=== PATIENT | male | born 1990 | race Caucasian/White ===

== ENCOUNTER 2016-10-20 16:57 | Inpatient (IN) | payer MEDICAID ==
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
[2016-10-20 18:53] LABS: % BASOPHILS 0.7 % (0.0-2.0); % EOSINOPHILS 3.7 % (0.0-5.0); % LYMPHOCYTES 28.3 % (20.0-50.0); % MONOCYTES 6.5 % (2.0-10.0); % NEUTROPHILS 60.8 % (40.0-80.0); HEMATOCRIT 45.4 % (39.0-49.0); HEMOGLOBIN 15.3 gm/dL (13.2-17.3); MEAN CELL VOLUME 83.9 fl (80-99); MEAN CORPUSCULAR HEMOGLOBIN 28.4 pg (26.0-30.0); MEAN CORPUSCULAR HGB CONC 33.8 pg (28.0-36.0); MEAN PLATELET VOLUME 9.1 fl; NEUTROPHILE ABSOLUTE 4.3 Th/cmm (1.8-8.0); PLATELET COUNT 102 Th/cmm (150-400); RED BLOOD COUNT 5.41 Mil/cmm (4.30-5.70); RED CELL DISTRIBUTION WIDTH 13.6 % (11.5-20.0); WHITE BLOOD COUNT 7.1 Th/cmm (4.8-10.8)
[2016-10-20] MEDS ORDERED: Sodium Chloride 0.9% 1,000 ML IV ONE (19:03)
[2016-10-20 19:04] LABS: ANION GAP 5.6 (7.0-16.0); BUN - UREA NITROGEN 13 mg/dL (7-25); BUN/CREATININE RATIO 16.3; CALCIUM SERUM 9.2 mg/dL (8.6-10.3); CARBON DIOXIDE 26.3 mEq/L (21.0-31.0); CHLORIDE 105 mEq/L (98-107); CREATININE - SERUM 0.8 mg/dL (0.7-1.3); GLUCOSE 86 mg/dL (70-105); POTASSIUM SERUM 3.9 mEq/L (3.5-5.1); SODIUM SERUM 133 mEq/L (136-145)
[2016-10-20 19:08] LABS: URINE COLOR YELLOW
[2016-10-20 19:09] LABS: URINE BILIRUBIN NEGATIVE (NEGATIVE); URINE BLOOD MODERATE (NEGATIVE); URINE GLUCOSE (UA) NEGATIVE (NEGATIVE); URINE KETONE NEGATIVE (NEGATIVE); URINE PH 6.5; URINE PROTEIN 30 mg/dL (NEGATIVE); URINE UROBILINOGEN 0.2 E.U./dL (0.2 - 1.0)
[2016-10-20 19:10] LABS: URINE BACTERIA MODERATE /hpf (NONE SEEN); URINE EPITHELIAL CELLS FEW /lpf (FEW); URINE WBC 50-100 /hpf (0-5)
[2016-10-20] MEDS ORDERED: cefTRIAXone 1 GM in Sodium Chloride 0.9% 50 ML IV ONE (19:24)
[2016-10-20] MEDS ORDERED: HYDROmorphone 1 mg/mL 1mL Syr IVP STA (20:32)
[2016-10-20] MEDS ORDERED: HYDROmorphone 1 mg/mL 1mL Syr ONE (20:48)
[2016-10-20] MEDS ORDERED: Morphine Sulfate 2 mg/mL 1mL Syr IVP PRN (21:23)
--- NOTE | 2016-10-20 22:05 | Admit Criteria Form ---
Admit Criteria Forms - Admit Criteria Diagnosis: PYELONEPHRITIS, ACUTE Clinical Indications for Admission to Inpatient Care (Place 'X' for any and all applicable criteria): Admission is indicated for ANY ONE of the following 1,2,3,4,5 [ ]I. Outpatient treatment has failed or is not feasible (eg, multidrug- resistant organism).5 [ ]II. beyond 24 weeks' gestation6 [ ]III. Hemodynamic instability [ ]IV. Immunocompromised state (eg, AIDS, diabetes, sickle cell disease) [X]V. Known renal or urologic abnormalities (eg, indwelling catheter, structural abnormalities, renal calculi, urinary stent, previous urologic surgery) [ ]. Condition that requires drainage procedure, including ANY ONE of the following: [ ]a) Urinary obstruction [ ]b) Pyelitis [ ]c) Pyonephrosis [ ]d) Renal or perinephric abscess [ ]e) Emphysematous pyelonephritis 7 [ ]VII. Inpatient admission required rather than observation care (Also use Pyelonephritis, Acute: Observation Care Criteria as appropriate) because of ANY ONE of the following: [ ]a) High fever or infection requiring inpatient admission as indicated by ANY ONE of [id number] [ ]A. Documented bacteremia [ ]B. Temp>104.9 [id number] (oral) [ ]C. Temp>103.10F (oral) or <96.80F (rectal) that does not respond to all emergency treatment [ ]b) Acute renal failure [ ]c) Other significant finding or clinical condition judged not to be within the scope of observation care [ ]d) IV fluid to replace significant ongoing (eg, for over 24hrs) losses (> 3 L/m2 per day) [ ]e) Other condition,treatment or monitoring requiring inpatient admission The original [facility] content created by [employer] has been revised. The portions of the content which have been revised are identified through the use of italic text or in bold, and [facility] has neither reviewed nor approved the modified material. All other unmodified content is copyright [facility]. Please see references footnoted in the original [facility] [employer] edition 2016 Admit Criteria Met?: Yes
[2016-10-21] MEDS: D5-0.45NS 1,000 ML IV SCH (00:12)
[2016-10-21 00:44] VITALS: BP 117/53
[2016-10-21] MEDS ORDERED: Amikacin 250 mg/mL 2mL Vial IV ONE (02:03)
[2016-10-21] MEDS ORDERED: Cefepime 1 GM in Sodium Chloride 0.9% 50 ML IV SCH (05:00)
[2016-10-21 06:08] LABS: % BASOPHILS 0.9 % (0.0-2.0); % EOSINOPHILS 6.3 % (0.0-5.0); % LYMPHOCYTES 32.7 % (20.0-50.0); % NEUTROPHILS 51.1 % (40.0-80.0); HEMATOCRIT 44.5 % (39.0-49.0); HEMOGLOBIN 15.3 gm/dL (13.2-17.3); MEAN CELL VOLUME 84.1 fl (80-99); MEAN CORPUSCULAR HEMOGLOBIN 28.9 pg (26.0-30.0); MEAN CORPUSCULAR HGB CONC 34.4 pg (28.0-36.0); MEAN PLATELET VOLUME 9.3 fl; NEUTROPHILE ABSOLUTE 2.8 Th/cmm (1.8-8.0); PLATELET COUNT 90 Th/cmm (150-400); RED CELL DISTRIBUTION WIDTH 13.4 % (11.5-20.0)
[2016-10-21 06:27] LABS: WHITE BLOOD COUNT 5.6 Th/cmm (4.8-10.8)
[2016-10-21 06:30] LABS: ALB/GLOB RATIO 1.5 (1.0-1.8); ALKALINE PHOSPHATASE 46 U/L (34-104); ANION GAP 6.5 (7.0-16.0); BILIRUBIN,TOTAL 0.6 mg/dL (0.3-1.0); BUN - UREA NITROGEN 12 mg/dL (7-25); CALCIUM SERUM 8.7 mg/dL (8.6-10.3); CARBON DIOXIDE 24.5 mEq/L (21.0-31.0); CHLORIDE 110 mEq/L (98-107); CREATININE - SERUM 0.8 mg/dL (0.7-1.3); GLUCOSE 97 mg/dL (70-105); SGOT 16 U/L (13-39); SGPT/ALT 17 U/L (7-52); SODIUM SERUM 137 mEq/L (136-145)
[2016-10-21 08:25] LABS: INR 1.09 (0.5-1.4); PROTHROMBIN TIME (TEST) 11.3 SECONDS (9.5-11.5)
[2016-10-21 08:32] LABS: PLATELET COUNT-DIC PANEL 90 Th/cmm (150-750)
[2016-10-21] MEDS: AMIKACIN IV SCH (10:17)
[2016-10-21] MEDS: DEXTROSE 5% IV SCH (10:17)
--- NOTE | 2016-10-21 10:17 | Diagnostic Imaging Report ---
Renal ultrasound HISTORY: Pyelonephritis. COMPARISON: None Technique: Sonography of the kidneys and urinary bladder was performed in multiple planes. FINDINGS: The right kidney measures 9.0 x 4.5 cm. There is fullness of the renal collecting system without evidence of harlan hydronephrosis. The left kidney measures 11.1 x 4.2 cm demonstrating mild left hydronephrosis. No evidence of focal lesions. Distended urinary bladder is noted measuring 351 mL's. The patient was unable to void during exam. Areas of irregular urinary bladder wall thickening are noted. IMPRESSION: Mild left hydronephrosis. Nonspecific fullness of the right renal collecting system without evidence of harlan hydronephrosis. Distended urinary bladder. Note, patient was unable to void. There are also areas of urinary bladder wall thickening with irregularities. Findings may be due to infectious, inflammatory, or neoplastic process. Clinical correlation is recommended.
[2016-10-21] MEDS: HYDROmorphone 2 mg/mL 1mL Vial IVP PRN ×3 (10:27→20:53)
[2016-10-21] MEDS: Cefepime 1 GM in Sodium Chloride 0.9% 50 ML IV SCH (17:30)
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
[2016-10-22] MEDS: HYDROmorphone 2 mg/mL 1mL Vial IVP PRN ×4 (01:03→16:27)
[2016-10-22] MEDS: Cefepime 1 GM in Sodium Chloride 0.9% 50 ML IV SCH ×2 (05:17→17:06)
[2016-10-22] MEDS: D5-0.45NS 1,000 ML IV SCH (05:22)
[2016-10-22 05:43] LABS: % BASOPHILS 0.2 % (0.0-2.0); % EOSINOPHILS 4.1 % (0.0-5.0); % LYMPHOCYTES 31.9 % (20.0-50.0); % MONOCYTES 7.6 % (2.0-10.0); % NEUTROPHILS 56.2 % (40.0-80.0); HEMATOCRIT 48.4 % (39.0-49.0); HEMOGLOBIN 16.3 gm/dL (13.2-17.3); MEAN CELL VOLUME 84.5 fl (80-99); MEAN CORPUSCULAR HEMOGLOBIN 28.5 pg (26.0-30.0); MEAN CORPUSCULAR HGB CONC 33.8 pg (28.0-36.0); MEAN PLATELET VOLUME 9.3 fl; NEUTROPHILE ABSOLUTE 2.9 Th/cmm (1.8-8.0); PLATELET COUNT 91 Th/cmm (150-400); RED BLOOD COUNT 5.73 Mil/cmm (4.30-5.70); RED CELL DISTRIBUTION WIDTH 13.2 % (11.5-20.0); WHITE BLOOD COUNT 5.2 Th/cmm (4.8-10.8)
[2016-10-22 06:03] LABS: ALB/GLOB RATIO 1.6 (1.0-1.8); ALKALINE PHOSPHATASE 49 U/L (34-104); ANION GAP 7.1 (7.0-16.0); BILIRUBIN,TOTAL 0.8 mg/dL (0.3-1.0); BUN - UREA NITROGEN 9 mg/dL (7-25); BUN/CREATININE RATIO 11.3; CALCIUM SERUM 9.2 mg/dL (8.6-10.3); CHLORIDE 108 mEq/L (98-107); CREATININE - SERUM 0.8 mg/dL (0.7-1.3); GLUCOSE 91 mg/dL (70-105); POTASSIUM SERUM 4.1 mEq/L (3.5-5.1); SGOT 19 U/L (13-39); SGPT/ALT 21 U/L (7-52); SODIUM SERUM 138 mEq/L (136-145)
[2016-10-22] MEDS: DEXTROSE 5% IV SCH (10:04)
[2016-10-22] MEDS: AMIKACIN IV SCH (10:04)
--- NOTE | 2016-10-22 10:49 | Infectious Disease Prog Note ---
Infectious Disease Subjective - Review of Systems Subjective: 126131 Infectious Disease Objective - Results Result Diagrams: 10/22/16 05:27 10/22/16 05:27 Recent Labs: Laboratory Last Values WBC 5.2 Th/cmm (4.8-10.8) 10/22/16 05:27 RBC 5.73 Mil/cmm (4.30-5.70) H 10/22/16 05:27 Hgb 16.3 gm/dL (13.2-17.3) 10/22/16 05:27 Hct 48.4 % (39.0-49.0) 10/22/16 05:27 MCV 84.5 fl (80-99) 10/22/16 05:27 MCH 28.5 pg (26.0-30.0) 10/22/16 05:27 MCHC Differential 33.8 pg (28.0-36.0) 10/22/16 05:27 RDW 13.2 % (11.5-20.0) 10/22/16 05:27 Plt Count 91 Th/cmm (150-400) L 10/22/16 05:27 MPV 9.3 fl 10/22/16 05:27 Neutrophils % 56.2 % (40.0-80.0) 10/22/16 05:27 Lymphocytes % 31.9 % (20.0-50.0) 10/22/16 05:27 Monocytes % 7.6 % (2.0-10.0) 10/22/16 05:27 Eosinophils % 4.1 % (0.0-5.0) 10/22/16 05:27 Basophils % 0.2 % (0.0-2.0) 10/22/16 05:27 Plt Count 90 Th/cmm (150-750) L 10/21/16 05:50 PT 11.3 SECONDS (9.5-11.5) 10/21/16 05:50 INR 1.09 (0.5-1.4) 10/21/16 05:50 PTT (Actin FS) 28.1 SECONDS (26.0-38.0) 10/21/16 05:50 Fibrinogen 157.0 mg/dL (200.0-400.0) L 10/21/16 05:50 D-Dimer < 100 ng/mL (100-400) L 10/21/16 05:50 Sodium 138 mEq/L (136-145) 10/22/16 05:27 Potassium 4.1 mEq/L (3.5-5.1) 10/22/16 05:27 Chloride 108 mEq/L (98-107) H 10/22/16 05:27 Carbon Dioxide 27.0 mEq/L (21.0-31.0) 10/22/16 05:27 Anion Gap 7.1 (7.0-16.0) 10/22/16 05:27 BUN 9 mg/dL (7-25) 10/22/16 05:27 Creatinine 0.8 mg/dL (0.7-1.3) 10/22/16 05:27 Est GFR ( Amer) > 60.0 ml/min (>90) 10/22/16 05:27 Est GFR (Non-Af Amer) > 60.0 ml/min 10/22/16 05:27 BUN/Creatinine Ratio 11.3 10/22/16 05:27 Glucose 91 mg/dL (70-105) 10/22/16 05:27 Calcium 9.2 mg/dL (8.6-10.3) 10/22/16 05:27 Total Bilirubin 0.8 mg/dL (0.3-1.0) 10/22/16 05:27 AST 19 U/L (13-39) 10/22/16 05:27 ALT 21 U/L (7-52) 10/22/16 05:27 Alkaline Phosphatase 49 U/L (34-104) 10/22/16 05:27 Total Protein 7.0 gm/dL (6.0-8.3) 10/22/16 05:27 Albumin 4.3 gm/dL (4.2-5.5) 10/22/16 05:27 Globulin 2.7 gm/dL 10/22/16 05:27 Albumin/Globulin Ratio 1.6 (1.0-1.8) 10/22/16 05:27 Urine Source CONCEPCION PORT 10/20/16 17:29 Urine Color YELLOW 10/20/16 17:29 Urine Clarity HAZY (CLEAR) 10/20/16 17:29 Urine pH 6.5 10/20/16 17:29 Ur Specific [place] 1.015 (1.005-1.030) 10/20/16 17:29 Urine Protein 30 mg/dL (NEGATIVE) H 10/20/16 17:29 Urine Glucose (UA) NEGATIVE mg/dL (NEGATIVE) 10/20/16 17:29 Urine Ketones NEGATIVE mg/dL (NEGATIVE) 10/20/16 17:29 Urine Blood MODERATE (NEGATIVE) H 10/20/16 17:29 Urine Nitrate NEGATIVE (NEGATIVE) 10/20/16 17:29 Urine Bilirubin NEGATIVE (NEGATIVE) 10/20/16 17:29 Urine Urobilinogen 0.2 E.U./dL (0.2 - 1.0) 10/20/16 17:29 Ur Leukocyte Esterase SMALL (NEGATIVE) H 10/20/16 17:29 Urine RBC 5-10 /hpf (0-5) H 10/20/16 17:29 Urine WBC 50-100 /hpf (0-5) H 10/20/16 17:29 Ur Epithelial Cells FEW /lpf (FEW) 10/20/16 17:29 Urine Bacteria MODERATE /hpf (NONE SEEN) 10/20/16 17:29 - Physical Exam Vitals and I&O: Vital Signs Temp 98.2 F 10/22/16 08:00 Pulse 56 10/22/16 08:00 Resp 18 10/22/16 08:00 BP 115/72 10/22/16 08:00 Pulse Ox 99 10/22/16 08:00 Intake & Output 10/21/16 10/22/16 10/22/16 18:59 06:59 18:59 Intake Total 1304.8 860 Balance 1304.8 860 Intake: Intake, IV Amount 1304.8 Amikacin 1,200 mg In 254.8 Dextrose 5% 250 ml @ 250 mls/hr IV Q24H DANNY Rx#: [id number] Cefepime 1 gm In Sodium 50 Chloride 0.9% 50 ml @ 100 mls/hr IV Q12H DANNY Rx#: [id number] D5-0.45NS 1,000 ml @ 100 1000 mls/hr IV .Q10H DANNY Rx#: [id number] Oral 860 Other: # Voids 4 Active Medications: Current Medications Acetaminophen (Tylenol) 650 mg PO Q6H PRN PRN Reason: Mild Pain/Headache/T above 101 Stop: 12/19/16 21:22 Diphenhydramine HCl (Benadryl 50 Mg/Ml) 25 mg IVP Q6HR PRN PRN Reason: Itching Stop: 12/20/16 17:12 Last Admin: 10/22/16 08:16 Dose: 25 mg Hydromorphone HCl (Dilaudid) 2 mg IVP Q4HR PRN PRN Reason: pain Stop: 12/20/16 10:11 Last Admin: 10/22/16 08:10 Dose: 2 mg Dextrose/Sodium Chloride (D5-0.45ns) 1,000 mls @ 100 mls/hr IV .Q10H [facility] Stop: 12/19/16 21:29 Last Admin: 10/22/16 05:22 Dose: 100 mls/hr Amikacin Sulfate 1,200 mg/ (Dextrose) 254.8 mls @ 250 mls/hr IV Q24H [facility] Stop: 12/20/16 09:59 Last Admin: 10/22/16 10:04 Dose: 250 mls/hr Cefepime HCl 1 gm/ Sodium (Chloride) 50 mls @ 100 mls/hr IV Q12H [facility] Stop: 12/20/16 04:59 Last Admin: 10/22/16 05:17 Dose: 100 mls/hr Miscellaneous (Amikacin Iv Per Pharmacy) 1 ea [facility] PRN PRN PRN Reason: PROTOCOL Stop: 12/19/16 21:26 Ondansetron HCl (Zofran) 4 mg IVP Q6H PRN PRN Reason: Nausea / Vomiting Stop: 12/19/16 21:22 Sodium Chloride (Saline Flush) 10 ml IV QSHIFT [facility] Stop: 12/20/16 07:59 Last Admin: 10/22/16 08:10 Dose: 10 ml Temazepam (Restoril) 15 mg PO HS PRN; Protocol PRN Reason: Insomnia Stop: 12/19/16 21:22
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
== END 2016-10-22 19:45 | disposition home or self-care (01) | DRG 463 ==
LOC: ER 16:57 → MSI 21:25
PROVIDERS: ADMIT Internal Medicine; ATTEND Internal Medicine
DX: N30.90 Cystitis, unspecified without hematuria (principal); N12 Tubulo-interstitial nephritis, not specified as acute or chronic; G89.29 Other chronic pain
CPT/HCPCS: 36415-UA; 76770-TC; 76857-TC; 80048-TC; 80053-TC; 80150-TC; 81001-TC; 85025-TC; 85049-TC; 85379-TC; 85384-TC; 85610-TC; 85730-TC; 87086-90; 96375; J0278; J0692; J0696; J1170; J1200; J2270; J7030

== ENCOUNTER 2016-11-25 12:01 | Emergency (ER) | payer MEDICAID ==
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
--- NOTE | 2016-11-25 13:53 | Diagnostic Imaging Report ---
CT right knee without IV contrast History: Trauma Comparison: None Technique: Axial images were obtained from the distal right femur the proximal right tibia without IV contrast. Reconstructions were made. Total DLP 193, CTD I 7.2 Findings: Mild degenerative changes are noted. No evidence of an acute fracture or dislocation. Old fibular styloid fractures are noted surrounding cortication. No evidence of a joint effusion. There may be osteopenia. There is mild prepatellar soft tissue swelling. IMPRESSION: No evidence of acute fracture. Mild prepatellar soft tissue swelling is noted. Old fibular styloid fracture. Mild degenerative changes. Osteopenia suspected. There is continued concern for underlying ligamentous or tendon injury MRI follow-up may also be obtained.
== END 2016-11-25 14:11 | disposition home or self-care (01) ==
LOC: ER 12:01
DX: S80.01XA Contusion of right knee, initial encounter (principal); Z88.5 Allergy status to narcotic agent; X58.XXXA Exposure to other specified factors, initial encounter; Y93.89 Activity, other specified; Y92.810 Car as the place of occurrence of the external cause; Y99.8 Other external cause status
CPT/HCPCS: 73700-TC-RT; Z7502

== ENCOUNTER 2017-02-20 12:59 | Emergency (ER) | payer MEDICAID ==
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
[2017-02-20 14:12] LABS: % BASOPHILS 0.5 % (0.0-2.0); % EOSINOPHILS 1.8 % (0.0-5.0); % LYMPHOCYTES 24.9 % (20.0-50.0); % MONOCYTES 5.7 % (2.0-10.0); % NEUTROPHILS 67.1 % (40.0-80.0); HEMATOCRIT 47.7 % (39.0-49.0); HEMOGLOBIN 16.4 gm/dL (13.2-17.3); MEAN CELL VOLUME 84.9 fl (80-99); MEAN CORPUSCULAR HEMOGLOBIN 29.2 pg (26.0-30.0); MEAN CORPUSCULAR HGB CONC 34.4 pg (28.0-36.0); NEUTROPHILE ABSOLUTE 5.6 Th/cmm (1.8-8.0); RED BLOOD COUNT 5.62 Mil/cmm (4.30-5.70)
[2017-02-20 14:16] LABS: PLATELET COUNT 148 Th/cmm (150-400); WHITE BLOOD COUNT 8.4 Th/cmm (4.8-10.8)
[2017-02-20 14:24] LABS: INR 1.08 (0.5-1.4); PROTHROMBIN TIME (TEST) 11.2 SECONDS (9.5-11.5)
[2017-02-20 14:27] LABS: URINE BILIRUBIN NEGATIVE (NEGATIVE); URINE BLOOD SMALL (NEGATIVE); URINE GLUCOSE (UA) NEGATIVE (NEGATIVE); URINE KETONE NEGATIVE (NEGATIVE); URINE PROTEIN 30 mg/dL (NEGATIVE); URINE UROBILINOGEN 0.2 E.U./dL (0.2 - 1.0)
[2017-02-20 14:29] LABS: ALB/GLOB RATIO 1.8 (1.0-1.8); ALKALINE PHOSPHATASE 52 U/L (34-104); BILIRUBIN,TOTAL 0.6 mg/dL (0.3-1.0); BUN - UREA NITROGEN 8 mg/dL (7-25); BUN/CREATININE RATIO 8.9; CALCIUM SERUM 9.6 mg/dL (8.6-10.3); CARBON DIOXIDE 24.9 mEq/L (21.0-31.0); CHLORIDE 106 mEq/L (98-107); CREATININE - SERUM 0.9 mg/dL (0.7-1.3); GLUCOSE 98 mg/dL (70-105); POTASSIUM SERUM 3.9 mEq/L (3.5-5.1); SGOT 15 U/L (13-39); SGPT/ALT 17 U/L (7-52); SODIUM SERUM 134 mEq/L (136-145)
[2017-02-20 14:48] LABS: URINE BACTERIA FEW /hpf (NONE SEEN); URINE COLOR YELLOW; URINE EPITHELIAL CELLS FEW /lpf (FEW); URINE RBC 0-2 /hpf (0-5)
== END 2017-02-20 15:25 | disposition home or self-care (01) ==
LOC: ER 12:59
DX: N39.0 Urinary tract infection, site not specified (principal); Z88.6 Allergy status to analgesic agent
CPT/HCPCS: 99284; 96372; 84484; 36415; 84443; 86592; 85025; 85610; 85730; 87086; 81001; 80053; 87040 ×2; J0696; J1885; Z7502

== ENCOUNTER 2017-12-05 14:44 | Emergency (ER) | payer MEDICAID ==
--- NOTE | 2017-12-05 15:12 | ED Physician Chart ---
ED Chief Complaint/HPI - Patient Information Date Seen:: 12/05/17 Time Seen:: 14:45 Chief Complaint:: Dysuria History of Present Illness:: onset x 3 days of dysuria; pt is S/P Penile Surgery; pt denies trauma, H/As, S/T , neck pain, C/P, SOB, Abd. Pain, A/N/V/D/C, fever, chills, or bleeding; pt is eating and is urinating well; pt last urinated one hour [employer]; pt's last tetanus shot: < 5 years; UTD Allergies:: Allergies Allergy/AdvReac Type Severity Reaction Status Date / Time morphine Allergy Verified 11/25/16 12:10 Vitals:: Vital Signs - 8 hr 12/05/17 14:51 BP 120/71 Historian:: Patient Review:: Nurse's Note Reviewed ED Review of Systems - Review of Systems General/Constitutional: No fever, No chills, No weight loss, No weakness, No diaphoresis, No edema, No loss of appetite Skin: No skin lesions, No rash, No bruising Head: No headache, No light-headedness Eyes: No loss of vision, No pain, No diplopia ENT: No earache, No nasal drainage, No sore throat, No tinnitus Neck: No neck pain, No swelling, No thyromegaly, No stiffness, No mass noted Cardio Vascular: No chest pain, No palpitations, No PND, No orthopnea, No edema Pulmonary: No SOB, No cough, No sputum, No wheezing GI: No nausea, No vomiting, No diarrhea, No pain, No melena, No hematochezia, No constipation, No hematemesis G/U: Dysuria, No frequency, No hematuria, No nacturia Musculoskeletal: No bone or joint pain, No back pain, No muscle pain Endocrine: No polyuria, No polydipsia Psychiatric: No prior psych history, No depression, No anxiety, No suicidal ideation, No homicidal ideation, No auditory hallucination, No visual hallucination Hematopoietic: No bruising, No lymphadenopathy Allergic/Immuno: No urticaria, No angioedema Neurological: No syncope, No focal symptoms, No weakness, No paresthesia, No headache, No seizure, No dizziness, No confusion, No vertigo ED Past Medical History - Past Medical History Obtainable: Yes Past Medical History: No significant medical hx Family History: HTN Social History: Non Smoker, No Alcohol, No Drug Use, Single Surgical History: other (Penile Surgery) Psychiatricy History: None Medication: Reviewed Family Medical History - Family Member Mother History Unknown: Yes Ethnicity: Non- Living Status: Still Living Hx Family Cancer: No Hx Family Coronary Artery Disease: No Hx Family Congestive Heart Failure: No Hx Family Hypertension: No Hx Family Stroke: No Hx Family Diabetes: No Hx Family Seizures: No Hx Family Dementia: No Hx Family AIDS: No Hx Family HIV: No Hx Family COPD: No Hx Family Hepatitis: No Hx Family Psychiatric Problems: No Hx Family Tuberculosis: No Grandmother Hx Family Diabetes: Yes ED Physical Exam - Physical Examination General/Constitutional: Awake, Well-developed, well-nourished, Alert, No distress, GCS 15, Non-toxic appearing, Ambulatory Head: Atraumatic Eyes: Lids, conjuctiva normal, PERRL, EOMI Skin: Nl inspection, No rash, No skin lesions, No ecchymosis, Well hydrated, No lymphadenopathy Other Skin comments:: Surgical Wounds at the Abdomen and Regions are healing well; no s/s of infection; good motor and sensory functions; good NV functions ENMT: External ears, nose nl, TM canals nl, Nasal exam nl, Lips, teeth, gums nl , Oropharynx nl, Tonsils nl Neck: Nontender, Full ROM w/o pain, No JVD, No nuchal rigidity, No bruit, No mass, No stridor Other Neck comments:: supple; no meningeal signs; no cervical tenderness; no bruits Respiratory: Nl effort/Exclusion, Clear to Auscultation, No Wheeze/Rhonchi/Rales Cardio Vascular: RRR, No murmur, gallop, rubs, NL S1 S2, Carotid/Femoral/Distal pulses equal bilaterally GI: No tenderness/rebounding/guarding, No organomegaly, No hernia, Normal BS's, Nondistended, No mass/bruits, No McBurney tenderness, Rectum exam nl Other GI comments:: no pulsatile masses; good BS; Stool is negative for OB : No CVA tenderness, NL external genitalia, No discharge Extremities: No tenderness or effusion, Full ROM, normal strength in all extremities, No edema, Normal digits & nails Neuro/Psych: Alert/oriented, DTR's symmetric, Normal sensory exam, Normal motor strength, Judgement/insight normal, Mood normal, Normal gait, No focal deficits Misc: Normal back, No paraspinal tenderness ED Labs/Radiology/EKG Results - Lab Results Comments:: U/A: + Pyuria; + Hematuria ED Septic Shock - . Is Septic Shock (SBP<90, OR Lactate>4 mmol\L) present?: No - <6hrs of presentation: Vital Signs: Vital Signs - 8 hr 12/05/17 14:51 BP 120/71 ED Reassessment (Disposition) - Reassessment Reassessment:: pt tolerated po fluids well in ER; pt is asymptomatic upon discharge Reassessment Condition:: Improved - Diagnosis Diagnosis:: Dx: UTI; Hematuria; Dysuria; Surgical Wounds; Cystitis; Nephrolithiasis; Urinary Tract Infection - Aftercare/Follow up Instructions Aftercare/Follow-Up Instructions:: Counseled pt regarding lab results/diagnosis & need follow up, Refer to Discharge Instructions, Counseled pt & family regarding lab results/diagnosis & need follow up Medication Prescribed:: Rx: Keflex 500mg po qid x 10 days; Neosporin Ointment bid and dressings x 14 days; Tylenol #3: one tablet po tid prn pain (#10); Strain all urine with Urine Strainer; Encourage fluids, especially citric acid juices; keep wounds clean and dry - Patient Disposition Discharge/Transfer:: Home Condition at Disposition:: Stable, Improved (RTER prn if existing s/s reoccur and/or get worse and/or any other new s/s occur; ACIs given for all above Dx; Refer to Urologist/Abdominal Surgeon/Insurance Office Manager DANIEL; F/U with PMD in one day or prn; RTER prn if concerned)
[2017-12-05 15:20] LABS: URINE MICROSCOPIC INDICATED? YES; URINE SOURCE MIDSTREAM
[2017-12-05 15:37] LABS: URINE COLOR YELLOW
[2017-12-05 15:38] LABS: URINE CLARITY CLOUDY (CLEAR)
[2017-12-05 15:39] LABS: URINE BILIRUBIN NEGATIVE (NEGATIVE); URINE BLOOD MODERATE (NEGATIVE); URINE GLUCOSE (UA) NEGATIVE (NEGATIVE); URINE KETONE NEGATIVE (NEGATIVE); URINE LEUKOCYTE ESTERASE LARGE (NEGATIVE); URINE NITRATE POSITIVE (NEGATIVE); URINE PROTEIN 100 mg/dL (NEGATIVE); URINE UROBILINOGEN 0.2 E.U./dL (0.2 - 1.0)
[2017-12-05 15:44] LABS: URINE BACTERIA MANY /hpf (NONE SEEN); URINE EPITHELIAL CELLS OCCASIONAL /lpf (FEW); URINE WBC 25-50 /hpf (0-5)
== END 2017-12-05 16:02 | disposition home or self-care (01) ==
LOC: ER 14:44
DX: N39.0 Urinary tract infection, site not specified (principal); N20.0 Calculus of kidney; N30.91 Cystitis, unspecified with hematuria
CPT/HCPCS: 81001-TC; 87086-90; Z7502

== ENCOUNTER 2018-05-31 15:06 | Inpatient (IN) | payer MEDICAID ==
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
[2018-05-31 16:13] LABS: URINE SOURCE CATH
[2018-05-31 16:16] LABS: HEMATOCRIT 45.4 % (41.0-60); HEMOGLOBIN 15.3 gm/dL (12-16); MEAN CELL VOLUME 89.8 fl (80-99); MEAN CORPUSCULAR HEMOGLOBIN 30.2 pg (26.0-30.0); MEAN CORPUSCULAR HGB CONC 33.6 pg (28.0-36.0); MEAN PLATELET VOLUME 8.2 fl; PLATELET COUNT 185 Th/cmm (150-400); RED BLOOD COUNT 5.05 Mil/cmm (4.30-5.70); RED CELL DISTRIBUTION WIDTH 13.6 % (11.5-20.0); WHITE BLOOD COUNT 14.5 Th/cmm (4.8-10.8)
[2018-05-31 16:18] LABS: URINE BILIRUBIN NEGATIVE (NEGATIVE); URINE BLOOD SMALL (NEGATIVE); URINE GLUCOSE (UA) NEGATIVE (NEGATIVE); URINE KETONE NEGATIVE (NEGATIVE); URINE LEUKOCYTE ESTERASE MODERATE (NEGATIVE); URINE MICROSCOPIC INDICATED? YES; URINE NITRATE NEGATIVE (NEGATIVE); URINE PROTEIN TRACE mg/dL (NEGATIVE)
[2018-05-31 16:34] LABS: URINE CLARITY HAZY (CLEAR); URINE COLOR YELLOW; URINE RBC NONE SEEN /hpf (0-5)
[2018-05-31 16:35] LABS: URINE BACTERIA MODERATE /hpf (NONE SEEN); URINE EPITHELIAL CELLS NONE SEEN /lpf (FEW)
[2018-05-31] MEDS ORDERED: Sodium Chloride 0.9% 1,000 ML IV ONE (16:38)
[2018-05-31] MEDS ORDERED: cefTRIAXone 1 GM in Sodium Chloride 0.9% 50 ML IV ONE (16:39)
[2018-05-31 16:40] LABS: ANION GAP 11.5 (7.0-16.0); BUN - UREA NITROGEN 17 mg/dL (7-25); CALCIUM SERUM 9.2 mg/dL (8.6-10.3); CARBON DIOXIDE 22.5 mEq/L (21.0-31.0); CHLORIDE 104 mEq/L (98-107); GFR AFRICAN-AMERICAN > 60.0 ml/min (>90); GFR NON AFRICAN-AMERICAN > 60.0 ml/min; GLUCOSE 98 mg/dL (70-105); SODIUM SERUM 134 mEq/L (136-145)
[2018-05-31 16:58] LABS: BAND NEUTROPHILE 0 % (0-10); LYMPHOCYTE 6 % (20-50); NEUTROPHILS 88 % (40-80)
[2018-05-31 16:59] LABS: EOSINOPHIL 1 % (0-5); MONOCYTE 5 % (2-10)
[2018-05-31] MEDS ORDERED: HYDROmorphone 1 mg/mL 1mL Syr IVP STA (17:11)
[2018-05-31] MEDS ORDERED: HYDROmorphone 1 mg/mL 1mL Syr ONE (17:15)
[2018-05-31] MEDS ORDERED: guaiFENesin 200 MG/10 ML UDC PO PRN (18:06)
[2018-05-31] MEDS: D5-0.9%NS 1,000 ML IV SCH (21:00)
[2018-05-31] MEDS: Hydrocodone/APAP 5mg/325mg Tab PO PRN (22:12)
[2018-05-31] MEDS: HYDROmorphone 1 mg/mL 1mL Syr IVP PRN (23:45)
[2018-06-01] MEDS: Hydrocodone/APAP 5mg/325mg Tab PO PRN ×2 (03:41→21:46)
[2018-06-01] MEDS: HYDROmorphone 1 mg/mL 1mL Syr IVP PRN ×3 (06:12→18:02)
[2018-06-01] MEDS ORDERED: DOLUTEGRAVIR PO SCH ×2 (09:00→14:54)
[2018-06-01] MEDS ORDERED: LAMIVUDI PO SCH ×2 (09:00→14:54)
[2018-06-01] MEDS ORDERED: ABACAVIR PO SCH ×2 (09:00→14:54)
[2018-06-01] MEDS: D5-0.9%NS 1,000 ML IV SCH ×2 (10:41→17:13)
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
[2018-06-02] MEDS: HYDROmorphone 1 mg/mL 1mL Syr IVP PRN ×4 (01:18→21:51)
[2018-06-02 03:29] VITALS: BP 135/79
[2018-06-02] MEDS: Hydrocodone/APAP 5mg/325mg Tab PO PRN ×3 (04:11→19:01)
[2018-06-02 08:01] LABS: % BASOPHILS 0.4 % (0.0-2.0); % EOSINOPHILS 2.2 % (0.0-5.0); % LYMPHOCYTES 12.6 % (20.0-50.0); % MONOCYTES 12.2 % (2.0-10.0); % NEUTROPHILS 72.6 % (40.0-80.0); EOSINOPHILE ABSOLUTE 0.2 Th/cmm (0.1-0.4); HEMOGLOBIN 16.3 gm/dL (12-16); LYMPHOCYTE ABSOLUTE 1.3 Th/cmm (1.5-3.0); MEAN CELL VOLUME 89.6 fl (80-99); MEAN CORPUSCULAR HEMOGLOBIN 30.4 pg (26.0-30.0); MEAN CORPUSCULAR HGB CONC 33.9 pg (28.0-36.0); MEAN PLATELET VOLUME 9.2 fl; MONOCYTE ABSOLUTE 1.2 Th/cmm (0.3-1.0); NEUTROPHILE ABSOLUTE 7.5 Th/cmm (1.8-8.0); PLATELET COUNT 151 Th/cmm (150-400); RED BLOOD COUNT 5.35 Mil/cmm (4.30-5.70); RED CELL DISTRIBUTION WIDTH 13.1 % (11.5-20.0); WHITE BLOOD COUNT 10.2 Th/cmm (4.8-10.8)
[2018-06-02 08:15] LABS: ALB/GLOB RATIO 1.5 (1.0-1.8); ALBUMIN 4.2 gm/dL (4.2-5.5); ALKALINE PHOSPHATASE 72 U/L (34-104); ANION GAP 13.4 (7.0-16.0); BILIRUBIN,TOTAL 1.2 mg/dL (0.3-1.0); BUN - UREA NITROGEN 11 mg/dL (7-25); CALCIUM SERUM 9.2 mg/dL (8.6-10.3); CARBON DIOXIDE 21.5 mEq/L (21.0-31.0); CHLORIDE 105 mEq/L (98-107); CREATININE - SERUM 0.9 mg/dL (0.7-1.3); GFR AFRICAN-AMERICAN > 60.0 ml/min (>90); GFR NON AFRICAN-AMERICAN > 60.0 ml/min; GLUCOSE 103 mg/dL (70-105); POTASSIUM SERUM 3.9 mEq/L (3.5-5.1); SGOT 21 U/L (13-39); SGPT/ALT 36 U/L (7-52); SODIUM SERUM 136 mEq/L (136-145)
--- NOTE | 2018-06-02 11:46 | Internal Medicine Prog Note ---
Internal Medicine Subjective - Subjective Patient seen and examined:: with staff, chart reviewed Patient is:: awake, verbal, interactive, in bed Patient Complaints of:: vomitting, constipation, pain with urination, unable to sleep Per staff patient has:: no adverse event, no episodes of fall, poor appetite, poor oral intake, gagging, tolerating meds Internal Medicine Objective - Results Result Diagrams: 06/02/18 07:10 06/02/18 07:10 Recent Labs: Laboratory Last Values WBC 10.2 Th/cmm (4.8-10.8) 06/02/18 07:10 RBC 5.35 Mil/cmm (4.30-5.70) 06/02/18 07:10 Hgb 16.3 gm/dL (12-16) 06/02/18 07:10 Hct 48.0 % (41.0-60) 06/02/18 07:10 MCV 89.6 fl (80-99) 06/02/18 07:10 MCH 30.4 pg (26.0-30.0) H 06/02/18 07:10 MCHC Differential 33.9 pg (28.0-36.0) 06/02/18 07:10 RDW 13.1 % (11.5-20.0) 06/02/18 07:10 Plt Count 151 Th/cmm (150-400) 06/02/18 07:10 MPV 9.2 fl 06/02/18 07:10 Add Manual Diff YES 05/31/18 16:07 Neutrophils % 72.6 % (40.0-80.0) 06/02/18 07:10 Band Neutrophils % 0 % (0-10) 05/31/18 16:07 Lymphocytes % 12.6 % (20.0-50.0) L 06/02/18 07:10 Monocytes % 12.2 % (2.0-10.0) H 06/02/18 07:10 Eosinophils % 2.2 % (0.0-5.0) 06/02/18 07:10 Basophils % 0.4 % (0.0-2.0) 06/02/18 07:10 Neutrophils (Manual) 88 % (40-80) H 05/31/18 16:07 Lymphocytes 6 % (20-50) L 05/31/18 16:07 Monocytes 5 % (2-10) 05/31/18 16:07 Eosinophils 1 % (0-5) 05/31/18 16:07 Sodium 136 mEq/L (136-145) 06/02/18 07:10 Potassium 3.9 mEq/L (3.5-5.1) 06/02/18 07:10 Chloride 105 mEq/L (98-107) 06/02/18 07:10 Carbon Dioxide 21.5 mEq/L (21.0-31.0) 06/02/18 07:10 Anion Gap 13.4 (7.0-16.0) 06/02/18 07:10 BUN 11 mg/dL (7-25) 06/02/18 07:10 Creatinine 0.9 mg/dL (0.7-1.3) 06/02/18 07:10 Est GFR ( Amer) > 60.0 ml/min (>90) 06/02/18 07:10 Est GFR (Non-Af Amer) > 60.0 ml/min 06/02/18 07:10 BUN/Creatinine Ratio 12.2 06/02/18 07:10 Glucose 103 mg/dL (70-105) 06/02/18 07:10 Calcium 9.2 mg/dL (8.6-10.3) 06/02/18 07:10 Total Bilirubin 1.2 mg/dL (0.3-1.0) H 06/02/18 07:10 AST 21 U/L (13-39) 06/02/18 07:10 ALT 36 U/L (7-52) 06/02/18 07:10 Alkaline Phosphatase 72 U/L (34-104) 06/02/18 07:10 Total Protein 7.0 gm/dL (6.0-8.3) 06/02/18 07:10 Albumin 4.2 gm/dL (4.2-5.5) 06/02/18 07:10 Globulin 2.8 gm/dL 06/02/18 07:10 Albumin/Globulin Ratio 1.5 (1.0-1.8) 06/02/18 07:10 TSH 0.40 uIU/ml (0.34-5.60) 06/02/18 07:10 Urine Source CATH 05/31/18 15:30 Urine Color YELLOW 05/31/18 15:30 Urine Clarity HAZY (CLEAR) 05/31/18 15:30 Urine pH 7.0 (4.6 - 8.0) 05/31/18 15:30 Ur Specific [place] 1.010 (1.005-1.030) 05/31/18 15:30 Urine Protein TRACE mg/dL (NEGATIVE) 05/31/18 15:30 Urine Glucose (UA) NEGATIVE mg/dL (NEGATIVE) 05/31/18 15:30 Urine Ketones NEGATIVE mg/dL (NEGATIVE) 05/31/18 15:30 Urine Blood SMALL (NEGATIVE) H 05/31/18 15:30 Urine Nitrate NEGATIVE (NEGATIVE) 05/31/18 15:30 Urine Bilirubin NEGATIVE (NEGATIVE) 05/31/18 15:30 Urine Urobilinogen 1.0 E.U./dL (0.2 - 1.0) 05/31/18 15:30 Ur Leukocyte Esterase MODERATE (NEGATIVE) H 05/31/18 15:30 Urine RBC NONE SEEN /hpf (0-5) 05/31/18 15:30 Urine WBC 6-10 /hpf (0-5) 05/31/18 15:30 Ur Epithelial Cells NONE SEEN /lpf (FEW) 05/31/18 15:30 Urine Bacteria MODERATE /hpf (NONE SEEN) H 05/31/18 15:30 - Physical Exam Vitals and I&O: Vital Signs Temp 97.5 F 06/02/18 08:00 Pulse 82 06/02/18 08:00 Resp 20 06/02/18 08:00 BP 121/65 06/02/18 08:00 Pulse Ox 96 06/02/18 08:00 Intake & Output 06/01/18 06/02/18 06/02/18 18:59 06:59 18:59 Intake Total 1900 2200 Output Total 2000 Balance -100 2200 Weight (lbs) 107.955 kg 108.21 kg Intake: Intake, IV Amount 1100 1200 D5-0.9%Ns 1,000 ml @ 100 1000 mls/hr IV .Q10H DANNY Rx#: [id number] D5-0.9%Ns 1,000 ml @ 60 1000 mls/hr IV .[id number] DANNY Rx #:[id number] Piperacillin Sodium/ 100 200 Tazobact 4.5 gm In Sodium Chloride 0.9% 100 ml @ 100 mls/hr IV Q8H COUNTS INCLUDE 234 BEDS AT THE [facility] Rx# :[id number] Oral 800 1000 Output: Urine 2000 Other: # Voids 4 4 # Bowel Movements 1 1 Weight Source Bedscale Bedscale Active Medications: Current Medications Acetaminophen (Tylenol) 650 mg PO Q4H PRN PRN Reason: Pain Or Fever above 101 Stop: 07/30/18 18:05 Acetaminophen/Hydrocodone Bitart ([place] 5mg/325mg) 1 tab PO Q4H PRN PRN Reason: Pain (Severe) Stop: 07/30/18 18:05 Last Admin: 06/02/18 04:11 Dose: 1 tab Guaifenesin (Robitussin) 200 mg PO Q4HR PRN PRN Reason: Cough or Congestion Stop: 07/30/18 18:05 Hydromorphone HCl (Dilaudid) 1 mg IVP Q6HR PRN PRN Reason: Pain (Severe) Stop: 07/30/18 18:06 Last Admin: 06/02/18 08:19 Dose: 1 mg Piperacillin Sod/Tazobactam (Sod 4.5 gm/ Sodium Chloride) 100 mls @ 100 mls/hr IV Q8H COUNTS INCLUDE 234 BEDS AT THE [facility] Stop: 07/30/18 19:59 Last Infusion: 06/02/18 05:40 Dose: Infused Dextrose/Sodium Chloride (D5-0.9%Ns) 1,000 mls @ 60 mls/hr IV .[id number] COUNTS INCLUDE 234 BEDS AT THE [facility] Stop: 07/31/18 15:14 Last Infusion: 06/01/18 23:13 Dose: Infused Miscellaneous (Abacavir/Dolutegravir/Lamivudi [Triumeq Tablet]) 1 tab PO DAILY COUNTS INCLUDE 234 BEDS AT THE [facility] Stop: 07/31/18 08:59 Ondansetron HCl (Zofran) 4 mg IV Q8H PRN PRN Reason: Nausea / Vomiting Stop: 07/30/18 18:05 Zolpidem Tartrate (Ambien) 10 mg PO HS PRN PRN Reason: Insomnia Stop: 07/30/18 18:05 Last Admin: 06/01/18 21:45 Dose: 10 mg General: weak HEENT: NC/AT, PERRLA, EOMI, dry oral mucosa Neck: Supple, No JVD, No LAD Lungs: CTAB Cardiovascular: RRR, Normal S1, Normal S2, without murmur Abdomen: soft, tender, globular, positive bowel sound, other (left flank) Extremities: pain Neurological: no change Internal Medicine Assmt/Plan - Assessment Assessment: ASSESSMENT: 1. Left flank pain, possible early pyelonephritis. 2. Leukocytosis. 3. Hyponatremia. 4. Urinary incontinence. 5. Diagnosed with human immunodeficiency virus. - Plan Plan: PLAN: We will continue the patient on aggressive IV hydration, IV antibiotic. We will follow the patient's urine culture. The patient to see urologist on an outpatient basis as well as to follow with his HIV upon discharge.
[2018-06-02] MEDS: D5-0.9%NS 1,000 ML IV SCH (19:05)
[2018-06-03] MEDS: HYDROmorphone 1 mg/mL 1mL Syr IVP PRN ×2 (04:00→10:23)
--- NOTE | 2018-06-03 10:26 | Diagnostic Imaging Report ---
Exam: Ultrasound summation kidneys HISTORY: Pain Findings: Real-time ultrasound summation kidneys performed multiple planes. The study demonstrates a normal just kidneys bilaterally without obstructive uropathy or hydronephrosis. There is no evidence for nephrolithiasis. Right kidney measures 10.5 x 5.3 x 6.5 cm Left kidney measures 11.1 x 5.5 x 5.4 cm. Urinary bladder is intact. IMPRESSION: Normal examination kidneys
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
== END 2018-06-03 14:04 | disposition home or self-care (01) | DRG 720 ==
LOC: ER 15:06 → MSI 18:58
PROVIDERS: ADMIT Internal Medicine; ATTEND Internal Medicine
DX: A41.9 Sepsis, unspecified organism (principal); E87.1 Hypo-osmolality and hyponatremia; N12 Tubulo-interstitial nephritis, not specified as acute or chronic; R32 Unspecified urinary incontinence; G89.4 Chronic pain syndrome; R10.9 Unspecified abdominal pain; Z88.5 Allergy status to narcotic agent; Z56.0 Unemployment, unspecified; Z83.3 Family history of diabetes mellitus
CPT/HCPCS: 36415-UA; 76770-TC; 80048-TC; 80053-TC; 81001-TC; 84443-TC; 85007-TC; 85025-TC; 87086-90; 96375; 96376; J0696; J1170; J2543; J7030; J7042; Z7610